=== PATIENT | female | born 1990 | race Caucasian/White ===

== ENCOUNTER → 2016-12-31 | Outpatient (CLI) | payer OTHER ==
--- NOTE | ~2016-12-31 | MR154 ---
[facility] A Service of [facility] RADIOLOGY TEXT RESULTS PATIENT: ONEAL DUPREE LOCATION: [facility] : [birth year] UNIT #: [id number] AGE: [address]: Mason Malone II, MD SEX: F ORDER DR: [id number] [address] [address] [id number] MR#: [id number] Acc #: [id number] NAME: ONEAL DUPREE : 1990 SEX: F STUDY DATE/TIME: 12/31/2016 14:07 UNIT: [facility] ROOM: STUDY DESCRIPTION: MR Pituitary Only WWo Cont Attending Physician: Mason Malone II., M.D. Referring Physician: Mason Malone II., M.D. Ordering Physician: Mason Malone II., M.D. Primary Care Physician: Treva Muñoz M.D. MRI CENTER REPORT This report is preliminary unless electronic signature is present. EXAM MRI of the brain and sella turcica with and without contrast HISTORY Persistent headaches over the past 9 years. Small pituitary lesion noted on previous imaging. Evaluate for growth over time. TECHNIQUE Multiplanar imaging of the brain was performed with thin detailed sections through the sella turcica with and without contrast. 10 mL of MultiHance was used. Comparison scan from 07/03/2016 FINDINGS The small focus of low signal in the right side of the pituitary gland posteriorly seen on the previous examination is again noted. It appears unchanged from the previous scan. It measures approximately 3 mm in diameter. It could potentially represent a partial volume artifact related to the cavernous sinus on the right as it is not seen on the coronal series including the multiphase postcontrast dynamic series through the sella turcica. The infundibular stalk is midline. The suprasellar cistern is clear. Cavernous sinuses are unremarkable. Juxtasellar structures are normal. IMPRESSION Sagittal images again demonstrate a focus of low signal on T1-weighted imaging and moderate signal on T2-weighted imaging involving the right-side of the pituitary gland. The appearance is unchanged from the previous exam. This may represent an artifact as the coronal series pre and post contrast is entirely normal. The gland is otherwise unremarkable and adjacent structures are normal as well. Dictated by... [facility] A Service of [facility] RADIOLOGY TEXT RESULTS PATIENT: ONEAL DUPREE LOCATION: [facility] : [birth year] UNIT #: [id number] AGE: [address]: Mason Malone II, MD SEX: F ORDER DR: Edis Mcmillan M.D. THIS IS AN ELECTRONICALLY VERIFIED REPORT Edis Mcmillan M.D. at 12/31/2016 10:17 PM LG/nadja TD: 12/31/2016 16:36 JOB #: [id number] MRI CENTER REPORT Page 1 of 1
== END | disposition home or self-care (01) ==
LOC: SMRI 13:55 → CCAT 14:30 → SMRI 15:00
DX: E23.6 Other disorders of pituitary gland (principal); R93.0 Abnormal findings on diagnostic imaging of skull and head, not elsewhere classified
CPT/HCPCS: 70553; A9581